=== PATIENT | female | born 1950 | race Caucasian/White ===

== ENCOUNTER 2018-09-05 22:30 | Emergency (ER) | payer MEDICARE, OTHER ==
[~2018-09-05] VITALS: Ht 165.1 cm; Wt 63.5 kg
[~2018-09-05 22:30] MED LIST: ACETAMINOPHEN-1 EAC1 PO; ADULT LOW DOSE81 MG PO; ALBUTEROL INHAL17 GM INH; ASPIRIN325; ASPIRIN325 PO; AZITHROMYCIN 2250 MG PO; BACTRIM DS TAB1 EAC1 PO; CENTRUM SILVER1 EAC4 PO; CLONAZEPAM 1 MG1 M1 PO; CYMBALTA; DICLOXACILLIN250 M1 OR; DIFLUCAN150 MG PO; EFFEXOR25 MG PO; FLEXERIL PO; FOLIC ACID1 MG PO; GILPIZIDE; GLUCOPHAGE1000 MG PO; GLUCOTROL10 MG PO; HUMALOG100 UNIT/1 SUBQ; HYCET 7.5 MG-3473 ML PO; HYDROXYCHLOROQ200 M1 PO; HYDROXYZINE HCL50 MG PO; IBUPROFEN 600600 M1 PO; IBUPROFEN 800800 M1 PO; IMURAN 50MG TAB50 M1 PO; IRON325 PO; JANUMET 50-1,01 EACH PO; JUNIVA; KEFLEX500 MG PO; LANTUS100 UNIT/M; LISINOPRIL10 MG PO; MECLIZINE HCL25 M1 PO; MEDROLDOSEPACK PO; METAMUCIL PACK1 EACH PO; METFORMIN; METFORMIN HCL500 MG PO; METHOTREXATE 22.5 MG PO; MIRALAX17 G1 PO; NAPROSYN500 MG; NAPROXEN 375 M375 M1 PO; NEURONTIN 300300 M1; NEURONTIN 300300 M1 PO; NORCO 5-325 TA1 EACH PO; NOVOLOG100 UNIT/1; NYSTATIN15 GM TP; OMEPRAZOLE40 MG PO; OXYCODONE HCL 55 MG PO; PERCOCET 7.5-51 EACH; PLAQUENIL200 MG PO; PREDNISONE 10 M10 M1 PO; PREDNISONE 10 M10 MG PO; PREDNISONE50 MG PO; PROAIR HFA8.5 GM IH; PROVENTIL HFA6.7 G1 INH; SENOKOT-S1 TA1 PO; TESSALON PERLE100 MG PO; TESSALON200 MG PO; TOUJEO SOL300 UNIT/1 SUBQ; TRAMADOL; TRAMADOL 50 MG50 MG PO; ULTRACET TABLET1 TAB PO; ULTRAM 50MG TAB50 MG PO; VALIUM5 MG PO; VESICARE 5 MG TA5 MG PO; VICOPROFEN 2001 EACH PO; VITAMIN A8000 UNI1 PO; VITAMIN D1000 UNIT PO; XARELTO10 MG PO; ZOFRAN ODT4 MG DISSOLVE; ZOFRAN4 MG PO; ZOLOFT100 MG PO; ZOLOFT50 MG PO; ZPAK PO; [UNRECOGNIZED DRUG - OTHER]
[2018-09-05 23:22] LABS: ABSOLUTE BASOPHILS 0.1 thou/uL (0.0-0.2); ABSOLUTE EOSINOPHILS 0.2 thou/uL (0.0-0.7); ABSOLUTE LYMPHOCYTES 2.6 thou/uL (0.8-5.3); ABSOLUTE MONOCYTES 0.7 thou/uL (0.0-1.2); ABSOLUTE NEUTROPHILS 3.6 thou/uL (1.6-8.1); BASOPHILS 0.9 %; EOSINOPHILS 2.9 %; HEMATOCRIT 39.3 % (37.0-47.0); HEMOGLOBIN 12.9 gm/dL (12.0-15.0); LYMPHOCYTES 36.6 %; MCHC 32.8 g/dL (28.0-37.0); MCV 88.4 fL (80.0-100.0); MONOCYTES 9.4 %; MPV 7.6 fl. (7.2-11.1); NUCLEATED RBCS 0 /100WBC; PLATELET COUNT* 363 thou/uL (150-400); POLYS 50.2 %; RBC 4.45 mil/uL (4.20-5.00); RDW-CV 13.6 % (10.5-14.5); WBC 7.2 thou/uL (4.0-11.0)
[2018-09-05 23:24] LABS: CALCIUM 9.2 mg/dL (8.5-10.1); CREATININE 0.8 mg/dL (0.6-1.3); POTASSIUM 4.1 mmol/L (3.5-5.1)
[2018-09-06] MEDS ORDERED: PERCOCET 7.5-31 EACH PO (02:28)
[2018-09-06 03:15] VITALS: BP 138/70
== END 2018-09-06 03:15 | disposition home or self-care (01) ==
LOC: M.ERS 22:30
PROVIDERS: Emergency Medicine
DX: S52.572A Other intraarticular fracture of lower end of left radius, initial encounter for closed fracture (principal); S52.612A Displaced fracture of left ulna styloid process, initial encounter for closed fracture; I10 Essential (primary) hypertension; E11.40 Type 2 diabetes mellitus with diabetic neuropathy, unspecified; K21.9 Gastro-esophageal reflux disease without esophagitis; F32.9 Major depressive disorder, single episode, unspecified; F41.9 Anxiety disorder, unspecified; E78.5 Hyperlipidemia, unspecified; Z90.710 Acquired absence of both cervix and uterus; Z96.652 Presence of left artificial knee joint; Z88.5 Allergy status to narcotic agent; W01.0XXA Fall on same level from slipping, tripping and stumbling without subsequent striking against object, initial encounter; Y93.89 Activity, other specified; Y92.89 Other specified places as the place of occurrence of the external cause; Y99.8 Other external cause status

== ENCOUNTER → 2019-10-26 | Outpatient (CLI) | payer MEDICARE, OTHER ==
[~2019-10-26] MED LIST changes: +PERCOCET 7.5-31 EACH PO
== END ==
LOC: M.RAD 13:46
DX: J98.11 Atelectasis (principal); N20.0 Calculus of kidney; M48.061 Spinal stenosis, lumbar region without neurogenic claudication

== ENCOUNTER → 2020-03-09 | Outpatient (CLI) | payer MEDICARE, OTHER ==
[2020-03-09 12:29] LABS: CREATININE 0.8 mg/dL (0.6-1.3)
== END ==
LOC: M.LAB 11:57 → M.CT 13:00
PROVIDERS: ATTEND Registered Nurse Diabetes Educator
DX: Z12.31 Encounter for screening mammogram for malignant neoplasm of breast (principal); K21.9 Gastro-esophageal reflux disease without esophagitis; I10 Essential (primary) hypertension; E11.42 Type 2 diabetes mellitus with diabetic polyneuropathy; M19.90 Unspecified osteoarthritis, unspecified site; M32.9 Systemic lupus erythematosus, unspecified; N30.01 Acute cystitis with hematuria

== ENCOUNTER 2020-03-16 15:24 | Emergency (ER) | payer MEDICARE, OTHER ==
[~2020-03-16] VITALS: Ht 157.5 cm; Wt 79.4 kg
[2020-03-16] MEDS ORDERED: CYMBALTA30 MG PO (15:52)
[2020-03-16] MEDS ORDERED: CYMBALTA60 MG PO (15:53)
[2020-03-16 16:36] LABS: ABSOLUTE EOSINOPHILS 0.2 thou/uL (0.0-0.7); ABSOLUTE LYMPHOCYTES 2.2 thou/uL (0.8-5.3); ABSOLUTE MONOCYTES 0.6 thou/uL (0.0-1.2); ABSOLUTE NEUTROPHILS 3.3 thou/uL (1.6-8.1); BASOPHILS 0.8 %; EOSINOPHILS 3.3 %; HEMATOCRIT 42.5 % (37.0-47.0); HEMOGLOBIN 14.6 gm/dL (12.0-15.0); LYMPHOCYTES 34.2 %; MCH 30.2 pg (26.0-34.0); MCHC 34.3 g/dL (28.0-37.0); MCV 87.9 fL (80.0-100.0); MONOCYTES 8.8 %; MPV 6.9 fl. (7.2-11.1); NUCLEATED RBCS 0 /100WBC; PLATELET COUNT* 381 thou/uL (150-400); POLYS 52.9 %; RBC 4.83 mil/uL (4.20-5.00); RDW-CV 13.5 % (10.5-14.5); WBC 6.3 thou/uL (4.0-11.0)
[2020-03-16 16:48] LABS: CALCIUM 9.3 mg/dL (8.5-10.1); CREATININE 0.9 mg/dL (0.6-1.3); POTASSIUM 4.6 mmol/L (3.5-5.1)
[2020-03-16 16:49] LABS: ALBUMIN 3.9 g/dL (3.4-5.0); TOTAL BILIRUBIN 0.7 mg/dL (<0.1-1.0); TOTAL PROTEIN 7.8 g/dL (6.4-8.2)
[2020-03-16 17:02] LABS: URINE BILIRUBIN NEGATIVE (Negative); URINE BLOOD NEGATIVE (Negative); URINE CLARITY CLEAR; URINE COLOR YELLOW; URINE GLUCOSE-RANDOM NEGATIVE (Negative); URINE KETONES 1+ (Negative); URINE LEUKOCYTES-REFLEX NEGATIVE (Negative); URINE NITRITE-REFLEX NEGATIVE (Negative); URINE PROTEIN NEGATIVE (Negative); URINE SPECIFIC GRAVITY >= 1.030 (1.005-1.030); URINE UROBILINOGEN 0.2 E.U./dl (0.2-1.0)
[2020-03-16] MEDS ORDERED: NORCO 5-325 TA1 EAC2 PO (18:10)
[2020-03-16] MEDS ORDERED: ZOFRAN ODT4 MG DISSOLVE (18:10)
[2020-03-16] MEDS ORDERED: CARAFATE1 GM PO (18:10)
[2020-03-16 18:20] VITALS: BP 131/68
--- NOTE | 2020-03-17 10:10 | EKG ---
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
== END 2020-03-16 18:20 | disposition home or self-care (01) ==
LOC: M.ERS 15:24
PROVIDERS: Emergency Medicine Emergency Medical Services
DX: R10.10 Upper abdominal pain, unspecified (principal); I10 Essential (primary) hypertension; E11.40 Type 2 diabetes mellitus with diabetic neuropathy, unspecified; E78.5 Hyperlipidemia, unspecified; M32.9 Systemic lupus erythematosus, unspecified; K21.9 Gastro-esophageal reflux disease without esophagitis; Z86.2 Personal history of diseases of the blood and blood-forming organs and certain disorders involving the immune mechanism; Z86.14 Personal history of Methicillin resistant Staphylococcus aureus infection; Z96.651 Presence of right artificial knee joint; Z88.6 Allergy status to analgesic agent; Z86.718 Personal history of other venous thrombosis and embolism; Z79.4 Long term (current) use of insulin; Z90.710 Acquired absence of both cervix and uterus

== ENCOUNTER → 2020-04-26 | Outpatient (CLI) | payer MEDICARE, OTHER ==
[~2020-04-26] MED LIST changes: +CARAFATE1 GM PO; +CYMBALTA30 MG PO; +CYMBALTA60 MG PO; +NORCO 5-325 TA1 EAC2 PO
[2020-04-26 14:15] LABS: CREATININE 0.7 mg/dL (0.6-1.3)
== END ==
LOC: M.CT 04-14 16:00 → M.LAB 13:00 → M.CT 14:00
PROVIDERS: ATTEND Internal Medicine
DX: R91.1 Solitary pulmonary nodule (principal); E11.42 Type 2 diabetes mellitus with diabetic polyneuropathy; K76.0 Fatty (change of) liver, not elsewhere classified; M47.815 Spondylosis without myelopathy or radiculopathy, thoracolumbar region; J98.4 Other disorders of lung

== ENCOUNTER 2020-09-05 22:08 | Emergency (ER) | payer MEDICARE, OTHER ==
[~2020-09-05] VITALS: Ht 157.5 cm; Wt 66.7 kg
[2020-09-05 22:23] LABS: URINE BILIRUBIN NEGATIVE (Negative); URINE BLOOD NEGATIVE (Negative); URINE CLARITY CLEAR; URINE COLOR YELLOW; URINE GLUCOSE-RANDOM NEGATIVE (Negative); URINE KETONES NEGATIVE (Negative); URINE LEUKOCYTES-REFLEX NEGATIVE (Negative); URINE NITRITE-REFLEX NEGATIVE (Negative); URINE PROTEIN NEGATIVE (Negative); URINE SPECIFIC GRAVITY >= 1.030 (1.005-1.030); URINE UROBILINOGEN 0.2 E.U./dl (0.2-1.0)
[2020-09-05] MEDS ORDERED: BENTYL 10 MG CA10 M1 PO (22:27)
[2020-09-05] MEDS ORDERED: PAXIL20 MG PO (22:28)
[2020-09-05 22:32] LABS: ABSOLUTE BASOPHILS 0.1 thou/uL (0.0-0.2); ABSOLUTE EOSINOPHILS 0.4 thou/uL (0.0-0.7); ABSOLUTE LYMPHOCYTES 3.1 thou/uL (0.8-5.3); ABSOLUTE MONOCYTES 0.6 thou/uL (0.0-1.2); ABSOLUTE NEUTROPHILS 3.4 thou/uL (1.6-8.1); BASOPHILS 1.2 %; EOSINOPHILS 4.7 %; HEMATOCRIT 40.3 % (37.0-47.0); HEMOGLOBIN 13.1 gm/dL (12.0-15.0); LYMPHOCYTES 41.2 %; MCH 26.8 pg (26.0-34.0); MCHC 32.5 g/dL (28.0-37.0); MCV 82.4 fL (80.0-100.0); MONOCYTES 7.5 %; NUCLEATED RBCS 0 /100WBC; PLATELET COUNT* 446 thou/uL (150-400); POLYS 45.4 %; RDW-CV 14.7 % (10.5-14.5); WBC 7.6 thou/uL (4.0-11.0)
[2020-09-05 22:41] LABS: PROTIME 10.3 Seconds (9.20-11.50)
[2020-09-05 22:42] LABS: CALCIUM 9.2 mg/dL (8.5-10.1); CREATININE 1.1 mg/dL (0.6-1.3); POTASSIUM 4.3 mmol/L (3.5-5.1)
[2020-09-05 22:51] LABS: ALBUMIN 3.3 g/dL (3.4-5.0); MAGNESIUM 1.4 mg/dL (1.8-2.4); TOTAL BILIRUBIN 0.2 mg/dL (<0.1-1.0); TOTAL PROTEIN 7.8 g/dL (6.4-8.2)
[2020-09-06 01:30] VITALS: BP 111/67
--- NOTE | 2020-09-06 11:11 | EKG ---
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 : 1950 Requested By: Alina Singh Order Number: [id number] MD: Ap Nicholas Measurements Intervals [place] Rate: 74 P: 35 SC: 167 QRS: 6 QRSD: 77 T: 49 QT: 385 QTc: 428 Interpretive Statements Sinus rhythm poor r wave progression Low voltage, precordial leads Baseline wander in lead(s) V3,V4,V5,V6 Compared to ECG 03/16/2020 16:14:07 Low QRS voltage now present Electronically Signed On 09-06-2020 11:11:02 CDT by Ap Nicholas [email or web address] <ELECTRONICALLY SIGNED> By: Ap Nicholas MD, FACC 09/06/20 1111 32 2233 Ap Nicholas MD, FAC /EPI
== END 2020-09-06 01:30 | disposition home or self-care (01) ==
LOC: M.ERS 22:08
PROVIDERS: Emergency Medicine
DX: R10.13 Epigastric pain (principal); I10 Essential (primary) hypertension; E11.40 Type 2 diabetes mellitus with diabetic neuropathy, unspecified; M32.9 Systemic lupus erythematosus, unspecified; E78.5 Hyperlipidemia, unspecified; Z96.641 Presence of right artificial hip joint; Z86.2 Personal history of diseases of the blood and blood-forming organs and certain disorders involving the immune mechanism; Z86.14 Personal history of Methicillin resistant Staphylococcus aureus infection; Z86.718 Personal history of other venous thrombosis and embolism; Z88.6 Allergy status to analgesic agent; Z90.710 Acquired absence of both cervix and uterus

== ENCOUNTER 2020-11-13 17:22 | Emergency (ER) | payer MEDICARE, OTHER ==
[~2020-11-13] VITALS: Ht 157.5 cm; Wt 66.7 kg
[~2020-11-13 17:22] MED LIST changes: +BENTYL 10 MG CA10 M1 PO; +PAXIL20 MG PO
[2020-11-13] MEDS ORDERED: ZOLOFT100 MG PO (17:32)
[2020-11-13] MEDS ORDERED: BENTYL 10 MG CA10 MG PO (17:33)
[2020-11-13 17:44] LABS: URINE COLOR ORANGE
[2020-11-13 17:45] LABS: URINE CLARITY HAZY
[2020-11-13 17:46] LABS: BACTERIA-REFLEX None Seen /HPF (None Seen); CASTS None Seen /LPF (None Seen); CRYSTALS None Seen /LPF (None Seen); SQUAMOUS 4-10 Moderate /LPF (0-3); URINE RBC 0-2 Rare /HPF (0-2); URINE WBC-REFLEX 0-5 Rare /HPF (0-5)
[2020-11-13 18:54] LABS: ABSOLUTE BASOPHILS 0.1 thou/uL (0.0-0.2); ABSOLUTE EOSINOPHILS 0.3 thou/uL (0.0-0.7); ABSOLUTE LYMPHOCYTES 2.4 thou/uL (0.8-5.3); ABSOLUTE MONOCYTES 0.5 thou/uL (0.0-1.2); ABSOLUTE NEUTROPHILS 2.5 thou/uL (1.6-8.1); EOSINOPHILS 5.6 %; HEMATOCRIT 39.8 % (37.0-47.0); HEMOGLOBIN 13.1 gm/dL (12.0-15.0); LYMPHOCYTES 42.1 %; MCH 27.4 pg (26.0-34.0); MCHC 33.1 g/dL (28.0-37.0); MCV 82.9 fL (80.0-100.0); MONOCYTES 8.8 %; MPV 7.1 fl. (7.2-11.1); NUCLEATED RBCS 0 /100WBC; PLATELET COUNT* 388 thou/uL (150-400); POLYS 42.5 %; RBC 4.79 mil/uL (4.20-5.00); RDW-CV 15.5 % (10.5-14.5); WBC 5.8 thou/uL (4.0-11.0)
[2020-11-13 19:00] LABS: CREATININE 0.6 mg/dL (0.6-1.3); POTASSIUM 4.4 mmol/L (3.5-5.1)
[2020-11-13 19:04] LABS: ALBUMIN 3.6 g/dL (3.4-5.0); TOTAL BILIRUBIN 0.5 mg/dL (<0.1-1.0); TOTAL PROTEIN 7.7 g/dL (6.4-8.2)
[2020-11-13 21:50] VITALS: BP 132/70
--- NOTE | 2020-11-14 12:02 | EKG ---
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 11/14/20 1202 1849 1849 Chi Thompson MD, [facility] /EPI
== END 2020-11-13 21:51 | disposition home or self-care (01) ==
LOC: M.ERS 17:22
PROVIDERS: Emergency Medicine Emergency Medical Services; Nurse Practitioner Family
DX: N20.0 Calculus of kidney (principal); Z88.6 Allergy status to analgesic agent; I10 Essential (primary) hypertension; Z90.710 Acquired absence of both cervix and uterus; E11.40 Type 2 diabetes mellitus with diabetic neuropathy, unspecified; E78.5 Hyperlipidemia, unspecified; M32.9 Systemic lupus erythematosus, unspecified; Z96.651 Presence of right artificial knee joint; K21.9 Gastro-esophageal reflux disease without esophagitis; Z86.14 Personal history of Methicillin resistant Staphylococcus aureus infection; Z86.718 Personal history of other venous thrombosis and embolism; Z86.711 Personal history of pulmonary embolism